=== PATIENT | female | born 1985 | race Caucasian/White ===

== ENCOUNTER 2018-03-08 16:26 | Emergency (ER) | payer MEDICAID, OTHER ==
[~2018-03-08] VITALS: Ht 162.6 cm; Wt 128.0 kg
[2018-03-08 16:29] VITALS: BP 129/73
== END 2018-03-08 18:51 | disposition home or self-care (01) ==
LOC: ED 18:45
DX: D17.22 Benign lipomatous neoplasm of skin and subcutaneous tissue of left arm (principal)
CPT/HCPCS: 99284

== ENCOUNTER → 2018-03-30 | Outpatient (CLI) | payer OTHER ==
[~2018-03-30] MED LIST: NONE PER PT
== END | disposition home or self-care (01) ==
LOC: STAR 13:07
PROVIDERS: ATTEND Surgery
DX: Z02.9 Encounter for administrative examinations, unspecified (principal)

== ENCOUNTER 2018-04-05 15:22 | Day surgery (SDC) | payer OTHER ==
[~2018-04-05] VITALS: Ht 162.6 cm; Wt 131.0 kg
[~2018-04-05 15:22] MED LIST changes: +BUPIVACAINE/PF-EPI 0.5% 1:200K ONE
[2018-04-05] MEDS ORDERED: LACTATED RINGERS 1,000 ML IV SCH ×3 (15:35→20:00)
[2018-04-05 15:38] VITALS: BP 124/70
[2018-04-05 16:01] LABS: HCG UR SG 1.022 (1.003-1.030)
[2018-04-05] MEDS ORDERED: FENTANYL PF 100 MCG/2ML ONE ×2 (16:08→18:04)
[2018-04-05] MEDS ORDERED: MIDAZOLAM 1 MG/ML, 2ML ONE (16:08)
[2018-04-05] MEDS ORDERED: PROPOFOL 10 MG/ML, 20ML ONE (17:00)
[2018-04-05] MEDS ORDERED: DEXAMETHASONE 4 MG/ML, 1ML ONE (17:00)
[2018-04-05] MEDS ORDERED: ONDANSETRON 2MG/ML, 2ML ONE (17:00)
[2018-04-05] MEDS ORDERED: OXYcodone 5 MG/5 ML ORAL.SOL UDC PO PRN ×2 (18:00→20:00)
[2018-04-05] MEDS ORDERED: LABETALOL 5MG/ML, 20ML IV PRN (18:00)
[2018-04-05] MEDS ORDERED: HYDROmorphone 1 MG/ML, 1ML IV PRN (18:00)
[2018-04-05] MEDS ORDERED: ALBUTEROL SULFATE 2.5 MG/3 ML NPPB PRN (18:00)
[2018-04-05] MEDS ORDERED: MEPERIDINE/PF 25MG/0.5ML IVPush PRN (18:00)
[2018-04-05] MEDS ORDERED: ACETAMINOPHEN 325 MG TABLET PO PRN (18:00)
[2018-04-05] MEDS ORDERED: PROMETHAZINE 25 MG/ML, 1ML IV PRN (18:00)
[2018-04-05] MEDS ORDERED: hydrALAzine 20 MG/ML, 1ML IV PRN (18:00)
[2018-04-05] MEDS ORDERED: ACETAMINOPHEN 650 MG/20.3 ML UDC ONE (18:04)
[2018-04-05] MEDS ORDERED: OXYcodone 5 MG/5 ML ORAL.SOL UDC ONE (18:04)
[2018-04-05] MEDS: FENTANYL PF 100 MCG/2ML IV PRN ×2 (18:08→18:16)
[2018-04-05] MEDS ORDERED: KETOROLAC 30 MG/1 ML IV PRN (20:00)
[2018-04-05] MEDS ORDERED: ONDANSETRON 2MG/ML, 2ML IVPush PRN (20:00)
[2018-04-05] MEDS ORDERED: HYDROmorphone 2 MG/ML, 1ML IV PRN (20:00)
[2018-04-05] MEDS ORDERED: DIPHENHYDRAMINE 50 MG/ML, 1ML IVPush PRN (20:00)
[2018-04-05] MEDS ORDERED: IBUPROFEN 600 MG TABLET PO SCH (21:00)
== END 2018-04-05 21:00 | disposition home or self-care (01) ==
LOC: OR 15:22 → 4NOR 18:40 → OR 21:00
PROVIDERS: ATTEND Surgery
DX: M79.89 Other specified soft tissue disorders (principal); E66.01 Morbid (severe) obesity due to excess calories; Z68.43 Body mass index [BMI] 50.0-59.9, adult; Z87.891 Personal history of nicotine dependence
CPT/HCPCS: 23073; 81025; 88305; J1100; J2250; J2405; J2704; J3010; G0378

== ENCOUNTER 2018-07-18 06:24 | Emergency (ER) | payer OTHER ==
[~2018-07-18] VITALS: Ht 162.6 cm; Wt 122.0 kg
[~2018-07-18 06:24] MED LIST changes: -BUPIVACAINE/PF-EPI 0.5% 1:200K ONE
[2018-07-18 06:26] VITALS: BP 138/92
--- NOTE | 2018-07-18 06:35 | NUR ---
PT C/O PAIN TO R SIDE FOR THE LAST 4 DAYS. PT STATES SHE ONLY HAS 1 KIDNEY AND IS WORRIED SOMETHING IS WRONG WITH THAT. PROVIDED PT WITH GOWN, MONITORS APPLIED, SIDERAILS UP X2, CALL LIGHT WITHIN REACH.
--- NOTE | 2018-07-18 07:04 | NUR ---
REPORT GIVEN TO YAZAN WEEKS
[2018-07-18 07:46] LABS: ANION GAP 5 mmol/L (5-15); CALCIUM 8.8 mg/dL (8.5-10.1); CHLORIDE 113 mmol/L (98-107); CREATININE 0.89 mg/dL (0.55-1.02)
--- NOTE | 2018-07-18 08:00 | NUR ---
lab to redraw pt
[2018-07-18 08:26] LABS: BASOPHILS # (AUTO) 0.02 x10^3/uL (0-0.1); BASOPHILS % (AUTO) 0 % (0-1); EOSINOPHILS # (AUTO) 0.11 x10^3/uL (0-0.4); EOSINOPHILS % (AUTO) 2 % (1-7); LYMPHOCYTES # (AUTO) 1.26 x10^3/uL (1-3.4); LYMPHOCYTES % (AUTO) 17 % (22-44); MD NO; MEAN CORPUSCULAR HEMOGLOBIN 25.5 pg (27.0-34.8); MEAN CORPUSCULAR HGB CONC 32.7 g/dL (32.4-35.8); MEAN PLATELET VOLUME 9.7 fL (7.4-10.4); MONOCYTES # (AUTO) 0.48 x10^3/uL (0.2-0.8); MONOCYTES % (AUTO) 6 % (2-9); NEUTROPHILS # (AUTO) 5.79 x10^3/uL (1.8-6.8); NEUTROPHILS % (AUTO) 76 % (42-75); PLATELET COUNT 263 x10^3/uL (130-400); RED BLOOD COUNT 5.56 x10^6/uL (3.82-5.3); RED CELL DISTRIBUTION WIDTH 14.5 % (9.6-15.2)
[2018-07-18 08:31] LABS: MICROSCOPIC AUTO
[2018-07-18 08:34] LABS: CULTURE INDICATED? YES
[2018-07-18] MEDS ORDERED: CEFTRIAXONE 1,000 MG IM ONE (09:00)
[2018-07-18] MEDS ORDERED: CEFTRIAXONE 1,000 MG ONE (09:04)
== END 2018-07-18 09:23 | disposition home or self-care (01) ==
LOC: ED 09:05
DX: N12 Tubulo-interstitial nephritis, not specified as acute or chronic (principal)
CPT/HCPCS: 36415; 76770; 80048; 81001; 82040; 84703; 85025; 87077; 87086; 87186; 96372; 99284; J0696

== ENCOUNTER 2019-05-16 12:10 | Outpatient (CLI) | payer OTHER | END 2019-05-16 23:59 | disposition home or self-care (01) | LOC: RAD 12:10 | PROVIDERS: ATTEND Physician Assistant | DX: R10.9 Unspecified abdominal pain (principal); M54.5 Low back pain; J11.1 Influenza due to unidentified influenza virus with other respiratory manifestations; Z90.5 Acquired absence of kidney | CPT/HCPCS: 76700 ==

== ENCOUNTER 2019-05-16 15:38 | Emergency (ER) | payer OTHER ==
[~2019-05-16] VITALS: Ht 162.6 cm; Wt 113.1 kg
[2019-05-16 16:28] LABS: BASOPHILS # (AUTO) 0.03 x10^3/uL (0-0.1); BASOPHILS % (AUTO) 1 % (0-1); EOSINOPHILS # (AUTO) 0.01 x10^3/uL (0-0.4); EOSINOPHILS % (AUTO) 0 % (1-7); LYMPHOCYTES # (AUTO) 1.14 x10^3/uL (1-3.4); LYMPHOCYTES % (AUTO) 24 % (22-44); MD NO; MEAN CORPUSCULAR HEMOGLOBIN 26.6 pg (27.0-34.8); MEAN CORPUSCULAR HGB CONC 33.3 g/dL (32.4-35.8); MEAN CORPUSCULAR VOLUME 79.7 fL (80-100); MEAN PLATELET VOLUME 9.5 fL (7.4-10.4); MONOCYTES # (AUTO) 0.58 x10^3/uL (0.2-0.8); MONOCYTES % (AUTO) 12 % (2-9); NEUTROPHILS # (AUTO) 2.99 x10^3/uL (1.8-6.8); NEUTROPHILS % (AUTO) 63 % (42-75); PLATELET COUNT 237 x10^3/uL (130-400); RED BLOOD COUNT 5.77 x10^6/uL (3.82-5.3); RED CELL DISTRIBUTION WIDTH 13.9 % (9.6-15.2)
[2019-05-16 16:41] LABS: ALBUMIN 4.3 g/dL (3.4-5.0); ANION GAP 7 mmol/L (5-15); CALCIUM 8.9 mg/dL (8.5-10.1); CHLORIDE 106 mmol/L (98-107); CREATININE 1.17 mg/dL (0.55-1.02)
[2019-05-16 16:51] LABS: CULTURE INDICATED? YES; MICROSCOPIC INDICATED
--- NOTE | 2019-05-16 18:04 | NUR ---
PT HERE WITH C/O RIGHT SIDED FLANK PAIN, SENT FROM URGENT CARE. PT WAS DIAGNOSED WITH BOTH FLU AND A UTI. PT STATES SHE HAD AN US THAT SHOWS HER RIGHT KIDNEY IS ABSENT. PT AAO X 4, NAD, ROOM AIR. DR. BAINS AT IN TRIAGE TO SEE PT. PLAN TO POSSIBLY REDO URINE SAMPLE AND CT SCAN TO VERIFY THAT RIGHT KIDNEY IS TRULY ABSENT. MD TO ORDER NEW SCANS.
--- NOTE | 2019-05-16 18:08 | NUR ---
PT BACK INTO TRIAGE TO AWAIT CT SCAN.
--- NOTE | 2019-05-16 18:23 | NUR ---
PT TO ROOM 26. CONENCTED TO MONITORS. VSS. NO NEEDS EXPRESSED. CALL LIGHT WITHIN REACH. AWAITING CT SCAN.
[2019-05-16] MEDS ORDERED: ONDANSETRON ODT 4 MG PO ONE (18:30)
[2019-05-16] MEDS ORDERED: HYDROcodone/APAP 5/325 TABLET PO ONE (18:30)
[2019-05-16] MEDS ORDERED: ACETAMINOPHEN 500 MG TABLET ONE (19:30)
[2019-05-16] MEDS ORDERED: KETOROLAC 30 MG/1 ML IM ONE (19:30)
[2019-05-16] MEDS ORDERED: ONDANSETRON ODT 4 MG ONE (19:30)
[2019-05-16] MEDS ORDERED: KETOROLAC 30 MG/1 ML ONE (19:30)
[2019-05-16] MEDS ORDERED: HYDROcodone/APAP 5/325 TABLET ONE (19:31)
[2019-05-16 19:35] VITALS: BP 124/78
--- NOTE | 2019-05-16 19:35 | NUR ---
PT MEDICATED PER ORDERS. REPORT RECEIVED FROM YAZAN JUNIOR. CARE ASSUMED.
--- NOTE | 2019-05-16 19:58 | NUR ---
TASK RN AT BEDSIDE FOR DISCHARGE TEACHING.
[2019-05-16] MEDS ORDERED: ACETAMINOPHEN 500 MG TABLET PO ONE (20:00)
--- NOTE | 2019-05-16 20:00 | NUR ---
Patient/Caregiver given discharge instructions and they have confirmed that they understand the instructions. Patient ambulatory with steady gait. HOUSEKEEPING NOTIFIED OF NEED FOR TERMINAL CLEAN.
== END 2019-05-16 20:01 | disposition home or self-care (01) ==
LOC: ED 19:34
DX: N30.00 Acute cystitis without hematuria (principal); Q60.0 Renal agenesis, unilateral; Z87.891 Personal history of nicotine dependence
CPT/HCPCS: 36415; 74176; 80048; 81001; 82040; 84703; 85025; 87086; 87147; 96372; 99284; J1885

== ENCOUNTER 2020-12-29 11:14 | Emergency (ER) | payer OTHER ==
[~2020-12-29] VITALS: Ht 162.6 cm; Wt 110.6 kg
[2020-12-29 11:16] VITALS: BP 129/90
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
[2020-12-29] MEDS ORDERED: KETOROLAC 30 MG/1 ML ONE (11:51)
--- NOTE | 2020-12-29 11:55 | NUR ---
PT TO RAD.
[2020-12-29] MEDS ORDERED: KETOROLAC 30 MG/1 ML IM ONE (12:00)
== END 2020-12-29 13:57 | disposition home or self-care (01) ==
LOC: ED 13:40
DX: S39.012A Strain of muscle, fascia and tendon of lower back, initial encounter (principal); S16.1XXA Strain of muscle, fascia and tendon at neck level, initial encounter; E66.9 Obesity, unspecified; Z68.41 Body mass index [BMI] 40.0-44.9, adult; V49.09XA Driver injured in collision with other motor vehicles in nontraffic accident, initial encounter; Y93.89 Activity, other specified; Y92.89 Other specified places as the place of occurrence of the external cause; Y99.8 Other external cause status
CPT/HCPCS: 72020; 72050; 72110; 99284